=== PATIENT | male | born 1975 | race Caucasian/White ===

== ENCOUNTER 2017-06-07 07:28 | Inpatient (IN) | payer BC ==
[~2017-06-07] VITALS: Ht 177.8 cm; Wt 146.1 kg
--- NOTE | ~2017-06-07 | ST ---
[place], [place] EXERCISE STRESS TEST REPORT NAME: HEAD,EDUARD Engle UNIT #: [id number] ROOM: 416 DOCTOR: SHARAN SILVA MD BIRTHDATE: [birth year] DOS: 06/07/2017 REFERRING PHYSICIAN: Dr. Dyson. INDICATION: Central chest pain. The patient underwent standard Evan protocol exercise treadmill stress testing. The patient's baseline EKG showed normal sinus, nonspecific ST-T wave changes. The patient's baseline heart rate is 67 beats per minute with blood pressure 124/86. The patient's peak heart rate of 169, representing 94% of maximum predicted. The patient's peak blood pressure is 166/86. The patient was noted to have no significant ST changes, no chest pain and no arrhythmias. SUMMARY OF FINDINGS: 1. Negative exercise treadmill stress test to adequate workload. 2. Mendez treadmill score of 8 portending a low risk prognosis. SHARAN SILVA MD CM:STRESS:EXERCISE STRESS TEST REPORT [id number] SHARAN SILVA MD
[2017-06-07 07:38] VITALS: BP 119/85
[2017-06-07 07:51] LABS: BASO % 0.7 % (0.0-1.0); EOS # 0.8 10*3/uL (0.0-0.4); HEMATOCRIT 45.8 % (42.0-52.0); LYMPH # 1.4 10*3/uL (1.3-4.4); MEAN CELL VOLUME 86.7 fl (80.0-94.0); MEAN CORPUSCULAR HGB 28.4 pg (27.0-31.0); MEAN CORPUSCULAR HGB CONC 32.8 g/dl (33.0-37.0); MEAN PLATELET VOLUME 10.2 fl (9.6-12.3); MONO # 0.5 10*3/uL (0.1-1.0); MONO % 7.8 % (3.0-9.0); NEUT # 3.1 10*3/uL (2.3-7.9); NEUT % 54.2 % (47.0-73.0); PLATELET COUNT AUTOMATED 261 10*3/uL (130-400); RED BLOOD COUNT 5.28 10*6/uL (4.50-5.90); RED CELL DISTRI WIDTH 12.9 % (0-14.5); WHITE BLOOD COUNT 5.8 10*3/uL (4.8-10.8)
[2017-06-07 08:00] VITALS: BP 117/72
[2017-06-07 08:02] LABS: ACT PARTIAL THROMBO TIME 24.5 SECONDS (20.8-31.5); INTERNATIONAL NORM RATIO 0.9 (2.0-3.5)
[2017-06-07 08:14] LABS: ALBUMIN 4.1 gm/dl (3.1-4.5); ALKALINE PHOSPHATASE 91 U/L (45-117); BUN 16 mg/dl (7-24); CHLORIDE 105 mmol/L (98-107); CREATININE 1.13 mg/dL (0.70-1.30); POTASSIUM 4.3 mmol/L (3.5-5.1); SGOT/AST 21 IU/L (3-35); SGPT/ALT 32 U/L (12-78); SODIUM 142 mmol/L (136-145); TOTAL PROTEIN 7.2 gm/dL (6.4-8.2)
[2017-06-07 08:17] LABS: TROPONIN I < 0.015 ng/ml (<0.045)
[2017-06-07 08:31] VITALS: BP 116/77
[2017-06-07 08:37] VITALS: BP 116/83
[2017-06-07 08:50] VITALS: BP 117/72
[2017-06-07] MEDS ORDERED: ZANTAC 150150 MG PO (09:36)
[2017-06-07] MEDS ORDERED: IBU800 MG PO (09:37)
[2017-06-07 12:00] VITALS: BP 118/72
== END 2017-06-07 16:30 | disposition home or self-care (01) | DRG 313 ==
LOC: ED 07:28 → EDHOLD 08:23 → 4E 08:28
PROVIDERS: Internal Medicine
PROC: 4A02XM4 Measurement of Cardiac Total Activity, External Approach (ICD-10-PCS; principal; 2017-06-07)
DX: R07.89 Other chest pain (principal); E66.01 Morbid (severe) obesity due to excess calories; R73.9 Hyperglycemia, unspecified; K21.9 Gastro-esophageal reflux disease without esophagitis; E83.41 Hypermagnesemia; Z82.49 Family history of ischemic heart disease and other diseases of the circulatory system; Z68.42 Body mass index [BMI] 45.0-49.9, adult; Z82.3 Family history of stroke; Z79.899 Other long term (current) drug therapy; Z72.0 Tobacco use